=== PATIENT | male | born 1990 | race Caucasian/White ===

== ENCOUNTER 2016-12-10 19:54 | Emergency (ER) | payer BC ==
[2016-12-10 20:41] VITALS: BP 147/83
--- NOTE | 2016-12-10 21:45 | EDM.PDOC ---
ED HPI GENERAL MEDICAL PROBLEM - General Chief Complaint: Upper Extremity Injury/Pain Stated Complaint: DISLOCATED LEFT SHOULDER Time Seen by Provider: 12/10/16 20:50 Source of Information: Reports: Patient History Limitations: Reports: No Limitations - History of Present Illness INITIAL COMMENTS - FREE TEXT/NARRATIVE: 26 year old male presents for evaluation and treatment of an injury to the left shoulder. Reports injury occurred on Sunday. Patient participates in [employer]. Reports he was bucked off and landed on the left shoulder. Reports the shoulder dislocated but was put in by a retail performance specialist. Reports The shoulder dislocated again yesterday and therefore decided to be seen. Reports it is currently dislocated. Reports discomfort but no serious pain. No treatments prior to arrival in the ER. Denies any numbness or tingling to the arm. Reports reduced left shoulder ROM due to discomfort. Patient is right handed. Denies any head trauma. 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 [No Known Home Meds] 12/10/16 [History] Past Medical History - Past Health History Medical/Surgical History: Denies Medical/Surgical History Social & Family History - Tobacco Use Smoking Status *Q: Never Smoker - Caffeine Use Caffeine Use: Reports: None - Recreational Drug Use Recreational Drug Use: No Review of Systems - Review of Systems Review Of Systems: See Below Musculoskeletal: Reports: Shoulder Pain (left), Other (deformity to the left shoulder) Skin: Denies: Bruising, Wound Neurological: Denies: Numbness, Tingling ED EXAM, GENERAL - Physical Exam Exam: See Below Exam Limited By: No Limitations General Appearance: Alert, WD/WN, No Apparent Distress Peripheral Pulses: 2+: Radial (L), Radial (R) Extremities: Normal Capillary Refill, Other (AC joint separation appreciated to the left shoulder evident by a deformity; no shoulder discloation appreciated) Neurological: Alert, Oriented Psychiatric: Normal Affect, Normal Mood Skin Exam: Warm, Dry, Normal Color Course - Vital Signs Last Recorded V/S: Last Vital Signs Temp 36.3 C 12/10/16 20:35 Pulse 75 12/10/16 20:35 Resp 16 12/10/16 20:35 BP 147/83 H 12/10/16 20:35 Pulse Ox 98 12/10/16 20:35 - Radiology Interpretation Free Text/Narrative:: xray of the left should shows an AC joint separation. No acute dislocation. Reviewed by myself and Dr. Hyman. - Re-Assessments/Exams Free Text/Narrative Re-Assessment/Exam: 12/10/16 21:40 I reviewed the xray results with the patient. Will put in a shoulder sling and have him follow-up with ortho for further evaluation. Departure - Departure Time of Disposition: 21:41 Disposition: Home, Self-Care 01 Condition: Good Clinical Impression: Acromioclavicular joint separation - Discharge Information Instructions: Acromioclavicular Separation With Rehab-SportsMed Referrals: PCP,None [Primary Care Provider] - Thien Russell MD [Physician] - Forms: ED Department Discharge Additional Instructions: shoulder sling to the left arm. The arm from the sling 3-4 times a day improve perform pendulum arm circles to prevent frozen shoulder. No Burtrum until seen and cleared by orthopedics. [id number] Tylenol or motrin for pain relief. Continue to ice the area. Ice 4 or 5 times a day for 10-15 minutes. Follow-up with orthopedics within the next [address] Russell. Please call [phone] to schedule with him. Let them know you have an AC joint separation. If you are unable to see Dr. Russell, recommend Dr. Nolan. Please call [phone] Nolan. Please return to the ER if your symptoms change or worsen.
--- NOTE | 2016-12-11 08:10 | CR ---
Left shoulder: Three views of the left shoulder were obtained. Comparison: No prior study. Clavicle is elevated at the acromioclavicular joint as well as widening within the coracoclavicular ligament. This widening indicates rupture of both the acromioclavicular joint and the coracoclavicular ligaments. No acute fracture or other bony abnormality is seen. Impression: 1. Acromioclavicular separation as well as findings indicating rupture of the coracoclavicular ligament. 2. No acute bony abnormality is identified. Diagnostic code #3
== END 2016-12-10 21:51 | disposition home or self-care (01) ==
LOC: JD.ED 19:54
DX: S43.102A Unspecified dislocation of left acromioclavicular joint, initial encounter (principal); X58.XXXA Exposure to other specified factors, initial encounter; Y92.39 Other specified sports and athletic area as the place of occurrence of the external cause
CPT/HCPCS: 73030-26-LT; 73030-LT; 99283